=== PATIENT | female | born 1965 | race Two or more races ===

== ENCOUNTER 2018-01-04 12:05 | Emergency (ER) | payer OTHER ==
[~2018-01-04] VITALS: Ht 167.6 cm; Wt 99.2 kg
[~2018-01-04 12:05] MED LIST: FLUT16SP2 NAS; IBUP-1221 PO; MELO7.5T5 PO; OXYC-302 PO
[2018-01-04 12:24] VITALS: BP 128/84
== END 2018-01-04 13:30 | disposition left against medical advice (07) ==
LOC: ED 13:20
DX: Z53.21 Procedure and treatment not carried out due to patient leaving prior to being seen by health care provider (principal)

== ENCOUNTER 2018-01-09 08:37 | Emergency (ER) | payer OTHER, MEDICAID ==
[~2018-01-09] VITALS: Ht 167.6 cm; Wt 98.6 kg
[2018-01-09 08:43] VITALS: BP 127/93
[2018-01-09] MEDS ORDERED: DIPH,PERTUSS(ACELL),TET VAC/PF 0.5 ML IM-VACC ONE ×2 (09:25→09:30)
[2018-01-09] MEDS ORDERED: BACITRACIN ZINC OINT 500U/GM, 0.9 GM ONE (10:31)
== END 2018-01-09 10:39 | disposition home or self-care (01) ==
LOC: ED 08:58
DX: S90.32XA Contusion of left foot, initial encounter (principal); S90.812A Abrasion, left foot, initial encounter; I25.10 Atherosclerotic heart disease of native coronary artery without angina pectoris; Z95.5 Presence of coronary angioplasty implant and graft; X58.XXXA Exposure to other specified factors, initial encounter; Y93.89 Activity, other specified; Y92.89 Other specified places as the place of occurrence of the external cause; Y99.8 Other external cause status
CPT/HCPCS: 90471; 90715

== ENCOUNTER 2021-04-21 09:58 | Emergency (ER) | payer MEDICAID, MEDICARE ==
[~2021-04-21] VITALS: Ht 167.6 cm; Wt 88.2 kg
[~2021-04-21 09:58] MED LIST changes: -OXYC-302 PO; +OXYC1TAB14 PO
[2021-04-21 10:17] VITALS: BP 116/58
[2021-04-21] MEDS ORDERED: LIDOCAINE-MPF 1%, 5ML ONE (10:55)
[2021-04-21] MEDS ORDERED: LIDOCAINE 1%, 10ML INFIL ONE (11:00)
--- NOTE | 2021-04-21 11:09 | NUR ---
APRIL VAZ AT BEDSIDE FOR I&D.
== END 2021-04-21 11:42 | disposition home or self-care (01) ==
LOC: ED 11:35
DX: L02.211 Cutaneous abscess of abdominal wall (principal)
CPT/HCPCS: 10060

== ENCOUNTER 2021-04-23 09:36 | Emergency (ER) | payer MEDICARE, MEDICAID ==
[~2021-04-23] VITALS: Ht 167.6 cm; Wt 86.7 kg
[2021-04-23] MEDS ORDERED: ATOR-2 PO (09:56)
[2021-04-23] MEDS ORDERED: LISI-167 PO (09:56)
[2021-04-23] MEDS ORDERED: KETOROLAC 30 MG/1 ML ONE (09:58)
[2021-04-23] MEDS ORDERED: KETOROLAC 30 MG/1 ML IM ONE (10:00)
[2021-04-23 10:41] VITALS: BP 133/79
--- NOTE | 2021-04-23 10:42 | NUR ---
Patient/Caregiver given discharge instructions and they have confirmed that they understand the instructions. Patient ambulatory with steady gait. NAD, all questions answered appropriately, denies additional needs at this time. No personal belongings left in room after discharge.
== END 2021-04-23 10:43 | disposition home or self-care (01) ==
LOC: ED 09:43
DX: L02.211 Cutaneous abscess of abdominal wall (principal)
CPT/HCPCS: 96372; 99283; J1885

== ENCOUNTER 2021-04-25 11:02 | Emergency (ER) | payer MEDICARE, MEDICAID ==
[~2021-04-25] VITALS: Ht 167.6 cm; Wt 88.0 kg
[~2021-04-25 11:02] MED LIST changes: +ATOR-2 PO; +LISI-167 PO
[2021-04-25 11:28] VITALS: BP 91/62
--- NOTE | 2021-04-25 11:35 | NUR ---
PT IN GOWN IN [facility]; AWAITING ERP AT THIS TIME.
--- NOTE | 2021-04-25 12:10 | NUR ---
PT D/C WITH D/C SUMMARY AND SCRIPTS. ALL QUESTIONS ANSWERED. PT AMBULATES TO REGSITRATION DESK WITH STEADY GAIT FOR D/C HOME AND DENIES ANY OTHER NEEDS PERTAINING TO THIS VISIT.
== END 2021-04-25 12:12 | disposition home or self-care (01) ==
LOC: ED 11:49
DX: L02.211 Cutaneous abscess of abdominal wall (principal)
CPT/HCPCS: 99283

== ENCOUNTER 2021-04-27 11:42 | Emergency (ER) | payer MEDICARE, MEDICAID ==
[~2021-04-27] VITALS: Ht 167.6 cm; Wt 86.6 kg
[2021-04-27 11:45] VITALS: BP 99/68
--- NOTE | 2021-04-27 12:34 | NUR ---
PT D/C WITH D/C SUMMARY AND SCRIPTS. ALL QUESTIONS ANSWERED. PT AMBULATES TO REGISTRATION DESK WITH STEADY GAIT FOR D/C HOME AND DENIES ANY OTHER NEEDS PERTAINING TO THIS VISIT.
== END 2021-04-27 12:36 | disposition home or self-care (01) ==
LOC: ED 12:00
DX: Z48.01 Encounter for change or removal of surgical wound dressing (principal)
CPT/HCPCS: 99281

== ENCOUNTER 2021-05-28 02:48 | Emergency (ER) | payer MEDICAID, MEDICARE ==
[~2021-05-28] VITALS: Ht 167.6 cm; Wt 82.3 kg
[2021-05-28 02:50] VITALS: BP 160/91
--- NOTE | 2021-05-28 03:06 | NUR ---
PT REPORTS TRYING TO GO TO SLEEP TONIGHT AND FEELING A PAIN IN BETWEEN HER SHOULDER BLADES SLIGHTLY TO THE LEFT SIDE THAT TRAVELLED TO NUMBESS DOWN THE ARM. PT REPROTS SIMILAR SYMPTOMS DURING HER LAST MA. PT PLACED ON SPO2/BP/ECG MONITORING ON ARRIVAL, PULSES 2+ BILATERALLY BOTH PEDAL AND RADIAL, GROSS NEURO INTACT, GRI STRENGTH EQUAL AT THIS TIME, NO FACIAL DROOP. PT REPORTS NUMBESSS DOWN LEFT ARM IS REDUCED TO PAIN AT THIS TIME. NAD. RESTING ON GURNEY, BED IN LOWEST, RAILS ENGAGED, CALL LIGHT ON LAP, WCTM.
[2021-05-28] MEDS ORDERED: METHOCARBAMOL 750 MG TABLET ONE (03:20)
[2021-05-28] MEDS ORDERED: ASPIRIN 81 MG TABLET CHEW ONE (03:21)
[2021-05-28] MEDS ORDERED: METHOCARBAMOL 750 MG TABLET PO ONE (03:30)
[2021-05-28] MEDS ORDERED: ASPIRIN 81 MG TABLET CHEW PO ONE (03:30)
--- NOTE | 2021-05-28 03:38 | NUR ---
Pt medicated with ordered meds. See eMAR. Pt resting comfortably. soils technician at bedside performing phlebotomy. Call cuellar and personal items within reach.
[2021-05-28 03:41] LABS: BASOPHILS % (AUTO) 1 % (0-1); EOSINOPHILS % (AUTO) 5 % (1-7); LYMPHOCYTES % (AUTO) 42 % (22-44); MEAN PLATELET VOLUME 8.1 fL (7.4-10.4); MONOCYTES % (AUTO) 7 % (2-9); NEUTROPHILS % (AUTO) 45 % (42-75); PLATELET COUNT 326 x10^3/uL (130-400); RED BLOOD COUNT 4.22 x10^6/uL (3.82-5.3); RED CELL DISTRIBUTION WIDTH 13.3 % (9.6-15.2)
[2021-05-28 03:54] LABS: ALANINE AMINOTRANSFERASE 20 U/L (12-78); ALBUMIN 3.7 g/dL (3.4-5.0); ANION GAP 5 mmol/L (5-15); CALCIUM 8.9 mg/dL (8.5-10.1); CHLORIDE 110 mmol/L (98-107)
[2021-05-28 03:58] LABS: ALKALINE PHOSPHATASE 90 U/L (45-117); BILIRUBIN,TOTAL 0.4 mg/dL (0.2-1.0); TOTAL PROTEIN 7.3 g/dL (6.4-8.2); TROPONIN I < 0.015 ng/mL (0.000-0.045)
[2021-05-28 06:12] LABS: TROPONIN I < 0.015 ng/mL (0.000-0.045)
== END 2021-05-28 06:42 | disposition home or self-care (01) ==
LOC: ED 03:21
DX: I25.10 Atherosclerotic heart disease of native coronary artery without angina pectoris (principal); M54.6 Pain in thoracic spine; I20.8 Other forms of angina pectoris; I10 Essential (primary) hypertension; I25.2 Old myocardial infarction; E78.00 Pure hypercholesterolemia, unspecified; R94.31 Abnormal electrocardiogram [ECG] [EKG]
CPT/HCPCS: 36415; 71045; 80053; 84484; 85025; 93005; 99285